=== PATIENT | male | born 1935 | race Caucasian/White ===

== ENCOUNTER 2019-02-26 20:29 | Inpatient (IN) | payer MEDICARE ==
[~2019-02-26] VITALS: Ht 177.8 cm; Wt 79.5 kg
[2019-02-26] MEDS ORDERED: MIRALAX17 GM PO (21:23)
[2019-02-26] MEDS ORDERED: BAYER CHEWABLE81 MG PO (21:23)
[2019-02-26] MEDS ORDERED: FAMOTIDINE10 MG PO (21:23)
[2019-02-26] MEDS ORDERED: PROPRANOLOL HCL20 MG PO (21:24)
[2019-02-26] MEDS ORDERED: TRAZODONE HCL150 MG PO ×2 (21:24→22:05)
[2019-02-26] MEDS ORDERED: TIROSINT13 MCG PO (21:24)
[2019-02-26] MEDS ORDERED: FLOMAX0.4 MG PO (21:24)
--- NOTE | 2019-02-26 21:28 | NUR ---
URINE SENT TO LAB.
--- NOTE | 2019-02-26 21:34 | NUR ---
PT TO CT AT THIS TIME
[2019-02-26 21:42] LABS: APPEARANCE HAZY (CLEAR); BILIRUBIN NEGATIVE (NEGATIVE); COLOR YELLOW (YELLOW); GLUCOSE NEGATIVE (NEGATIVE); KETONE NEGATIVE (NEGATIVE); NITRITE POSITIVE (NEGATIVE); PROTEIN TRACE mg/dL (NEGATIVE); UROBILINOGEN NORMAL (NORMAL)
[2019-02-26 21:43] LABS: BACTERIA MANY /hpf (NEGATIVE); RED CELLS - URINE 0-5 /hpf (0-5); WHITE CELLS - URINE 25-50 /hpf (NEGATIVE)
--- NOTE | 2019-02-26 21:44 | NUR ---
PT BACK FROM CT.
--- NOTE | 2019-02-26 22:00 | NUR ---
PT FAMILY FRIEND REJI ARVIZU [phone]
[2019-02-26] MEDS ORDERED: PRAVACHOL40 MG PO (22:03)
[2019-02-26] MEDS ORDERED: COREG12.5 MG PO (22:03)
[2019-02-26] MEDS ORDERED: NORVASC2.5 MG PO (22:03)
[2019-02-26 22:20] LABS: BASOPHILS 0.1 % (0-2); EOSINOPHILS 0.2 % (0-7); HEMATOCRIT 35.7 % (42.0-54.0); HEMOGLOBIN 12.2 g/dL (13.5-17.5); IMMATURE GRANULOCYTES 0.3 % (0-5); LYMPHOCYTES 7.4 % (15-50); MCH 29.3 pg (26.0-34.0); MCHC 34.2 g/dL (31.0-37.0); MCV 85.6 fL (80.0-100.0); MEAN PLATELET VOLUME 11.1 fL (7.4-10.4); MONOCYTES 8.8 % (2-11); NEUTROPHILS 83.2 % (40-80); PLATELET COUNT 119 10x3/uL (130-400); RBC 4.17 10x6/uL (4.20-6.10); RDW 15.1 % (11.5-14.5); WBC 17.2 10x3/uL (4.8-10.8)
--- NOTE | 2019-02-26 22:25 | NUR ---
BLADDER SCAN DONE AT THIS TIME AFTER PT VOIDING. OML DETECTED IN BLADDER. EDP NOTIFIED.
[2019-02-26 22:36] LABS: ALBUMIN 3.2 g/dL (3.4-5.0); ANION GAP 14.6 mmol/L (8-16); BILIRUBIN - TOTAL 1.17 mg/dL (0.2-1.3); CALCIUM 8.8 mg/dL (8.5-10.1); CARBON DIOXIDE 25.7 mmol/L (21.0-32.0); CREATININE - SERUM 1.9 mg/dL (0.6-1.3); MAGNESIUM - SERUM 1.8 mg/dL (1.8-2.4); POTASSIUM - SERUM 4.3 mmol/L (3.5-5.1); PROTEIN - SERUM 7.1 g/dL (6.4-8.2)
--- NOTE | 2019-02-26 22:55 | NUR ---
DR ZHANG COVERING FOR DR LOTT NOTIFIED AND REVIEWED PT's BEHAVIOR AND ASSESSMENT RESULTS. PT IS A LOW RISK, DR ZHANG STATED TO GIVE RESOURCES TO PT AT TIME OF DISCHARGE . NO FURTHER ORDERS AT THIS TIME. RESOURCES REVIEWED WITH PT AND HE VERBALIZED UNDERSTANDING.
[2019-02-27 02:54] VITALS: BP 133/58; BMI 25.1
--- NOTE | 2019-02-27 03:19 | NUR ---
ATTEMPTED TO REVIEW PATIENTS MEDICATION, PATIENT STATES WHY WOULD HE KNOW THAT INFORMATION.
[2019-02-27 04:00] VITALS: BP 150/64
--- NOTE | 2019-02-27 04:31 | NUR ---
I have reviewed this patient and I concur with the Shift Assessment completed by the Licensed Practical Nurse today this shift.
[2019-02-27 06:43] LABS: ANION GAP 14.6 mmol/L (8-16); CALCIUM 8.5 mg/dL (8.5-10.1); CARBON DIOXIDE 24.4 mmol/L (21.0-32.0); CREATININE - SERUM 1.8 mg/dL (0.6-1.3); MAGNESIUM - SERUM 1.9 mg/dL (1.8-2.4); PHOSPHOROUS 3.1 mg/dL (2.5-4.9)
[2019-02-27 07:34] LABS: BASOPHILS 0.1 % (0-2); EOSINOPHILS 0.1 % (0-7); HEMATOCRIT 34.7 % (42.0-54.0); HEMOGLOBIN 11.6 g/dL (13.5-17.5); IMMATURE GRANULOCYTES 0.2 % (0-5); LYMPHOCYTES 7.1 % (15-50); MCH 28.6 pg (26.0-34.0); MCHC 33.4 g/dL (31.0-37.0); MCV 85.7 fL (80.0-100.0); MONOCYTES 8.3 % (2-11); NEUTROPHILS 84.2 % (40-80); RBC 4.05 10x6/uL (4.20-6.10); RDW 15.2 % (11.5-14.5)
--- NOTE | 2019-02-27 08:32 | NUR ---
ASSESSMENT DONE. DENIES NEEDS
[2019-02-27 08:45] VITALS: BP 139/57
--- NOTE | 2019-02-27 10:31 | NUR ---
DC GIVEN TO PT
--- NOTE | 2019-02-27 10:32 | NUR ---
ORTHO B/P LAYING 139/57 SITTING 129/57 STANDING 138/51
[2019-02-27 10:53] LABS: PLATELET COUNT 143 10x3/uL (130-400); PLATELET ESTIMATE NORMAL
[2019-02-27 10:54] LABS: MEAN PLATELET VOLUME 10.67 fL (7.4-10.4); PLATELET MORPHOLOGY PLT CLUMPS PRESENT
[2019-02-27 10:56] LABS: ANISOCYTOSIS OCC
[2019-02-27 13:57] VITALS: BP 126/57
[2019-02-27 14:59] VITALS: Ht 177.8 cm; Wt 79.5 kg
[2019-02-27 17:30] VITALS: BP 109/53
--- NOTE | 2019-02-27 18:41 | NUR ---
WITHOUT CHANGES OR DISTRESS NOTED AT THIS TIME.
--- NOTE | 2019-02-27 19:05 | NUR ---
REPORT RECEIVED, WILL CONTINUE POC. PATIENT IS A/OX4, UP WITH ASSIST. PATIENT IS LYING ON RT SIDE, RESTING WITH EYES CLOSED. IV TO LT AC INFUSING NS@100ML/HR, PATENT, DRSG C/D/I. NO S/S OF DISTRESS NOTED, RR EVEN AND UNLABORED ON ROOM AIR. PATIENT DENIES FURTHER NEEDS AT THIS TIME. CL IN REACH, BED LOCKED AND LOWERED. WILL CTM.
[2019-02-27 20:00] VITALS: BP 111/52
[2019-02-28] VITALS: BP 103/40
--- NOTE | 2019-02-28 01:43 | NUR ---
I have reviewed this patient and I concur with the Shift Assessment completed by the Licensed Practical Nurse today this shift.
[2019-02-28 04:38] LABS: BASOPHILS 0.2 % (0-2); EOSINOPHILS 3.4 % (0-7); HEMATOCRIT 31.9 % (42.0-54.0); HEMOGLOBIN 10.8 g/dL (13.5-17.5); IMMATURE GRANULOCYTES 0.2 % (0-5); LYMPHOCYTES 14.3 % (15-50); MCH 28.9 pg (26.0-34.0); MCHC 33.9 g/dL (31.0-37.0); MCV 85.3 fL (80.0-100.0); MEAN PLATELET VOLUME 9.8 fL (7.4-10.4); MONOCYTES 10.6 % (2-11); NEUTROPHILS 71.3 % (40-80); PLATELET COUNT 166 10x3/uL (130-400); RBC 3.74 10x6/uL (4.20-6.10); RDW 15.3 % (11.5-14.5)
[2019-02-28 05:01] LABS: ANION GAP 10.1 mmol/L (8-16); CALCIUM 7.8 mg/dL (8.5-10.1); CARBON DIOXIDE 25.9 mmol/L (21.0-32.0); MAGNESIUM - SERUM 1.9 mg/dL (1.8-2.4); PHOSPHOROUS 3.3 mg/dL (2.5-4.9)
--- NOTE | 2019-02-28 06:08 | NUR ---
ASSISTED PATIENT TO BATHROOM TO HAVE BM, PATIENT C/O BURNING WHEN URINATING.
--- NOTE | 2019-02-28 07:14 | NUR ---
REPORT RECEIVED. WILL CONTINUE WITH POC. PT CURRENTLY LYING SUPINE. CALL LIGHT W/I REACH. PT IS RESTING AT THIS TIME. RR EVEN AND UNLABORED ON RA. NS INFUSING @100ML/HR VIA L.AC PIV. NO S/S OF DISTRESS NOTED. PT DENIES ANY NEEDS. WILL CTM.
[2019-02-28 09:28] VITALS: BP 135/55
--- NOTE | 2019-02-28 16:48 | MORECARE ---
CASE MANAGEMENT DISCHARGE SUMMARY PATIENT: RENZO KNAPP UNIT: [id number] ADM DATE: 02/26/19 AGE: 83 : 33 SEX: M ROOM/BED: D.2126 AUTHOR: NORM GAUTHIER PHYSICIAN: REFERRING PHYSICIAN: MEGAN ERICKSON MD DATE OF SERVICE: 02/28/19 Discharge Plan Patient Name: RENZO KNAPP Facility: [facility]:[place] : 1935 Planned Disposition: Anticipated Discharge Date: Discharge Date: Expected LOS: Initial Reviewer: [email or web address] Initial Review Date: 02/28/2019 Generated: 02/28/19 5:48 pm Comments DCP- Discharge Planning Updated by [email or web address]: Natalie Fregoso on 02/28/19 3:[address] Patient Name: RENZO KNAPP Admission Status: ER Accout number: [id number] Admission Date: 02-26-2019 : 1935 Admission Diagnosis: Attending: MEGAN ERICKSON Current LOS: 2 Anticipated DC Date: Planned Disposition: Primary Insurance: MEDICARE A & B Discharge Planning Comments: CM MET WITH PATIENT TODAY ABOUT DC PLANNING/NEEDS. STATES WANTS TO MOVE TO [place] WHERE HIS FAMILY IS AT. I RECEIVED FAX THIS EVENING THAT [facility] [place]. NOT SURE WHO NEEDS TO FILL OUT THESE MEDICAL FORMS. CM WILL FOLLOW. Commercial Installer: Natalie Fregoso Patient Name: RENZO KNAPP Page [id number] at 1648 All edits/amendments must be made on the electronic document DICTATION DATE: 02/28/191647 DRIER TRANSFER CAR OPERATOR: TONY 02/28/191647 RPT#: [id number] DC DATE: STATUS: ADM IN [facility] [address] [place] [address] END OF REPORT
--- NOTE | 2019-02-28 17:39 | NUR ---
I have reviewed this patient and I concur with the Shift Assessment completed by the Licensed Practical Nurse today this shift.
--- NOTE | 2019-02-28 17:40 | NUR ---
I have reviewed this patient and I concur with the Shift Assessment completed by the Licensed Practical Nurse today this shift.
[2019-02-28 20:00] VITALS: BP 139/63
[2019-03-01] VITALS: BP 129/60
--- NOTE | 2019-03-01 02:57 | NUR ---
RESTING WITH EYES CLOSED, RESPERTIONS EVEN, NO S/S DISTRESS NOTED.
[2019-03-01 04:00] VITALS: BP 143/66
[2019-03-01 06:20] LABS: CALCIUM 8.4 mg/dL (8.5-10.1); CARBON DIOXIDE 25.2 mmol/L (21.0-32.0); CREATININE - SERUM 1.7 mg/dL (0.6-1.3); MAGNESIUM - SERUM 1.9 mg/dL (1.8-2.4); PHOSPHOROUS 2.8 mg/dL (2.5-4.9); POTASSIUM - SERUM 4.2 mmol/L (3.5-5.1)
--- NOTE | 2019-03-01 06:50 | NUR ---
I have reviewed this patient and I concur with the Shift Assessment completed by the Licensed Practical Nurse today this shift.
--- NOTE | 2019-03-01 07:20 | NUR ---
REPORT RECEIVED. WILL CONTINUE WITH POC. PT CURRENTLY LYING SEMI FOWLERS. CALL LIGHT W/I REACH. RR EVEN AND UNLABORD ON RA. L.AC PIV IS SALINE LOCKED. NO S/S OF DISTRESS NOTED. PT DENIES ANY NEEDS AT THIS TIME. WILL CTM.
[2019-03-01 07:54] LABS: BASOPHILS 0.3 % (0-2); EOSINOPHILS 4.6 % (0-7); HEMATOCRIT 31.7 % (42.0-54.0); HEMOGLOBIN 10.3 g/dL (13.5-17.5); IMMATURE GRANULOCYTES 0.4 % (0-5); LYMPHOCYTES 18.9 % (15-50); MCH 28.9 pg (26.0-34.0); MCHC 32.5 g/dL (31.0-37.0); MCV 88.8 fL (80.0-100.0); MONOCYTES 15.5 % (2-11); NEUTROPHILS 60.3 % (40-80); RBC 3.57 10x6/uL (4.20-6.10); RDW 15.2 % (11.5-14.5)
[2019-03-01 07:55] LABS: MEAN PLATELET VOLUME 10.6 fL (7.4-10.4); PLATELET COUNT 113 10x3/uL (130-400)
[2019-03-01 09:01] VITALS: BP 147/71
--- NOTE | 2019-03-01 13:12 | NUR ---
Nutrition Follow-up: Awaiting rehab placement. Diet: Regular, Ensure with meals PO intake: 25-75% Wt: 175# Last BM: 03/01 Labs reviewed Meds reviewed Continue current diet as tolerated. Encourage PO intake. [place] food preferences. RD following.
[2019-03-01 13:19] VITALS: BP 111/64
--- NOTE | 2019-03-01 16:00 | MORECARE ---
CASE MANAGEMENT DISCHARGE SUMMARY PATIENT: RENZO KNAPP UNIT: [id number] ADM DATE: 02/26/19 AGE: 83 : 33 SEX: M ROOM/BED: D.2126 AUTHOR: NORM GAUTHIER PHYSICIAN: REFERRING PHYSICIAN: MEGAN ERICKSON MD DATE OF SERVICE: 03/01/19 Discharge Plan Patient Name: RENZO KNAPP Facility: [facility]:[place] : 1935 Planned Disposition: Anticipated Discharge Date: Discharge Date: Expected LOS: Initial Reviewer: [email or web address] Initial Review Date: 02/28/2019 Generated: 03/01/19 4:59 pm Comments DCP- Discharge Planning Updated by [email or web address]: Natalie Fregoso on 03/01/19 2:[address] Patient Name: RENZO KNAPP Encounter No: [id number] : 1935 Primary Insurance: MEDICARE A & B Anticipated DC Date: Planned Disposition: External Planned Provider: : DCP follow-up note: Patient in agreement with discharge plan to home. No changes to plan. CM faxed va papers to Dr. Manzano office to complete. Case management will follow and assist as needed. Natalie Fregoso DCP- Discharge Planning Updated by [id number]: Natalie Fregoso on 02/28/19 3:[address] Patient Name: RENZO KNAPP Admission Status: ER Accout number: [id number] Admission Date: 02-26-2019 : 1935 Admission Diagnosis: Attending: MEGAN ERICKSON Current LOS: 2 Anticipated DC Date: Planned Disposition: Primary Insurance: MEDICARE A & B Discharge Planning Comments: CM MET WITH PATIENT TODAY ABOUT DC PLANNING/NEEDS. STATES WANTS TO MOVE TO [place] WHERE HIS FAMILY IS AT. I RECEIVED FAX THIS EVENING THAT APPEAR TO BE FORMS FROM THE [facility] IN [place]. NOT SURE WHO NEEDS TO FILL OUT THESE MEDICAL FORMS. CM WILL FOLLOW. Linesperson: Natalie Santos DP export: 02/28/19 3:48 p Patient Name: RENZO KNAPP Page [phone] at 1600 All edits/amendments must be made on the electronic document DICTATION DATE: 03/01/191558 DIDACTIC PROGRAM IN DIETETICS DIRECTOR: TONY 03/01/191558 RPT#: [id number] DC DATE: STATUS: ADM IN [facility] [address] [place] [address] END OF REPORT
--- NOTE | 2019-03-01 17:21 | NUR ---
Rehab Prescreening Consult recieved and the chart has been reviewed. Spoke to the CM Natalie Fregoso who states this patient does not want to come to the ARU he prefers to discharge home. Delia Vang RN Clinical Liaison, Rehab
[2019-03-01 17:58] VITALS: BP 150/69
--- NOTE | 2019-03-01 19:25 | NUR ---
REPORT RECIEVED AND ROUNDING COMPLETE. PATIENT LAYING IN BED IN LOW FOWLERS. PATIENT HAS GARGLED SPEECH. PATIENT ASKED IF I COULD TURN ON ALL HIS LIGHTS BECAUSE IT IS DARK IN HIS ROOM. ASSISTED PATIENT WITH THIS. PATIENT IS NOT SHOWING ANY S/SX OF DISTRESS AT THIS TIME. PATIENT HAS A LEFT AC PIV THAT IS SALINE LOCKED AT THIS TIME. PIV HAS NO S/SX OF INFILTRATION OR INFECTION, DRESSING INTACT AND ORANGE SWAP CAP IN PLACE. PATIENT IS ON ROOM AIR. LUNGS ARE CLEAR BILATERALLY. BOWEL SOUNDS PRESENT X4. PATIENT STATES HE HAS NO NEEDS AT THIS TIME. CALL LIGHT WITHIN REACH AND BED IN LOWEST LOCKED POSITION.
[2019-03-01 20:10] VITALS: BP 136/63
--- NOTE | 2019-03-01 20:14 | NUR ---
PATIENT CALLED ME INTO ROOM TO SHOW ME THAT HIS PIV WAS MISSING FROM HIS LEFT AC. LOCATED PIV UNDER HIM, CATH INTACT AND NO BLEEDING NOTED. PATIENT STATES HE DOES NOT WANT NO IV TONIGHT HE WILL TALK WITH HIS DOCTOR IN THE MORNING BECAUSE HE IS GOING HOME TOMORROW. PATIENT IS ALERT AND ORIENTED AT THIS TIME. CALL LIGHT WITHIN REACH AND BED IN LOWEST POSITION.
[2019-03-02 00:05] VITALS: BP 129/61
--- NOTE | 2019-03-02 01:59 | NUR ---
I have reviewed this patient and I concur with the Shift Assessment completed by the Licensed Practical Nurse today this shift.
--- NOTE | 2019-03-02 03:36 | NUR ---
PATIENT LAYING ON RIGHT SIDE, EYES CLOSED BREATHING SHALLOW BUT EVEN. NO DISTRESS NOTED AT THIS TIME. CALL LIGHT WITHIN REACH AND BED IN LOWEST LOCKED POSITION.
[2019-03-02 05:07] LABS: BASOPHILS 0.4 % (0-2); EOSINOPHILS 6.3 % (0-7); HEMATOCRIT 32.5 % (42.0-54.0); HEMOGLOBIN 10.5 g/dL (13.5-17.5); IMMATURE GRANULOCYTES 0.5 % (0-5); LYMPHOCYTES 21.9 % (15-50); MCH 28.6 pg (26.0-34.0); MCHC 32.3 g/dL (31.0-37.0); MCV 88.6 fL (80.0-100.0); MEAN PLATELET VOLUME 10.3 fL (7.4-10.4); MONOCYTES 15.6 % (2-11); NEUTROPHILS 55.3 % (40-80); RBC 3.67 10x6/uL (4.20-6.10); RDW 15.1 % (11.5-14.5); WBC 5.6 10x3/uL (4.8-10.8)
[2019-03-02 05:24] LABS: PLATELET COUNT 197 10x3/uL (130-400)
[2019-03-02 05:27] LABS: CALCIUM 8.5 mg/dL (8.5-10.1); CARBON DIOXIDE 27.4 mmol/L (21.0-32.0); CREATININE - SERUM 1.5 mg/dL (0.6-1.3); MAGNESIUM - SERUM 1.8 mg/dL (1.8-2.4); POTASSIUM - SERUM 4.4 mmol/L (3.5-5.1)
[2019-03-02 05:29] LABS: PHOSPHOROUS 3.6 mg/dL (2.5-4.9)
--- NOTE | 2019-03-02 07:41 | NUR ---
PT REFUSING I/V, SAYS HE'S GOING HOME TODAY. ASSISTED PT WITH WALKER TO BATHROOM AND BACK. PT HAD SMALL B.M. ALL QUESTIONS ANSWERED, NO COMPLAINTS OR CONCERNS AT THIS TIME. CL IN REACH, SRX2 NO FAMILY AT BEDSIDE.
[2019-03-02 08:13] VITALS: BP 148/67
[2019-03-02] MEDS ORDERED: PROTONIX40 MG PO (10:59)
[2019-03-02] MEDS ORDERED: LEVOFLOXACIN500 MG PO (10:59)
--- NOTE | 2019-03-02 15:54 | NUR ---
PT ESCORTED OUT TO FRIENDS POV.
--- NOTE | 2019-03-04 09:24 | MORECARE ---
CASE MANAGEMENT DISCHARGE SUMMARY PATIENT: RENZO KNAPP UNIT: [id number] ADM DATE: 02/26/19 AGE: 83 : 33 SEX: M ROOM/BED: D.2126 AUTHOR: NORM GAUTHIER PHYSICIAN: REFERRING PHYSICIAN: MEGAN ERICKSON MD DATE OF SERVICE: 03/04/19 Discharge Plan Patient Name: RENZO KNAPP Facility: [facility]:[place] : 1935 Planned Disposition: Home Anticipated Discharge Date: 03/02/19 Discharge Date: 03/02/2019 Expected LOS: 4 Initial Reviewer: [email or web address] Initial Review Date: 02/28/2019 Generated: 03/04/19 10:24 am Comments DCP- Discharge Planning Updated by [email or web address]: Natalie Fregoso on 03/01/19 2:[address] Patient Name: RENZO KNAPP Encounter No: [id number] : 1935 Primary Insurance: MEDICARE A & B Anticipated DC Date: Planned Disposition: External Planned Provider: : DCP follow-up note: Patient in agreement with discharge plan to home. No changes to plan. CM faxed va papers to Dr. Manzano office to complete. Case management will follow and assist as needed. Natalie Fregoso DCP- Discharge Planning Updated by [email or web address]: Natalie Fregoso on 02/28/19 3:[address] Patient Name: RENZO KNAPP Admission Status: ER Accout number: [id number] Admission Date: 02-26-2019 : 1935 Admission Diagnosis: Attending: MEGAN ERICKSON Current LOS: 2 Anticipated DC Date: Planned Disposition: Primary Insurance: MEDICARE A & B Discharge Planning Comments: CM MET WITH PATIENT TODAY ABOUT DC PLANNING/NEEDS. STATES WANTS TO MOVE TO [place] WHERE HIS FAMILY IS AT. I RECEIVED FAX THIS EVENING THAT APPE[facility] TO [facility] [place]. NOT SURE WHO NEEDS TO FILL OUT THESE MEDICAL FORMS. CM WILL FOLLOW. Chromosomal Disorders Counselor: Natalie Santos DP export: 03/01/19 3:00 p Patient Name: RENZO KNAPP Page [phone] at 0924 All edits/amendments must be made on the electronic document DICTATION DATE: 03/04/19923 911 OPERATOR: TONY 03/04/19923 RPT#: [id number] DC DATE:03/02/19 STATUS: DIS IN [facility] [address] [place] [address] END OF REPORT
== END 2019-03-02 15:54 | disposition home or self-care (01) | DRG 683 ==
LOC: D.ER 20:29 → D.M2 22:52
PROVIDERS: Emergency Medicine; ADMIT Internal Medicine Nephrology; ATTEND Internal Medicine Nephrology
DX: N17.9 Acute kidney failure, unspecified (principal); N39.0 Urinary tract infection, site not specified; R42 Dizziness and giddiness; R32 Unspecified urinary incontinence; E86.0 Dehydration; D64.9 Anemia, unspecified; E11.9 Type 2 diabetes mellitus without complications; I10 Essential (primary) hypertension; E03.9 Hypothyroidism, unspecified